=== PATIENT | female | born 1990 | race Caucasian/White ===

== ENCOUNTER 2023-10-19 16:07 | Emergency (ER) | payer OTHER, SELFPAY ==
[2023-10-19 16:15] VITALS: BP 113/82
[2023-10-19 19:17] VITALS: BP 102/67
--- NOTE | 2023-10-19 19:22 | ED.GENMED ---
History of Present Illness
General
Chief Complaint: DVT/Possible Blood Clot
Source: patient
Exam Limitations: none
Time Seen by Provider: 10/19/23 18:46
Travel History
Have you had any contact with someone who has COVID-19?: No
Do you have any symptoms of coronavirus? Fever > 100 degrees, chills, cough, shortness of breath, sore throat, loss of taste or smell, muscle aches, or headache?: No
History of Present Illness
History of Present Illness:
This is a 33 year old female that comes in with c/o left leg bruising. States that about a week ago she started with a bruise on the left lateral posterior knee area. States that her friend told her about blood clots since she is on control
and she felt it better get checked. States that when she walks or stretches the muscle she has some discomfort. States that she has had a little nausea and a headache yesterday. Denies any fever, chills, chest pain, SOB, abd pain, vomiting,
diarrhea, headache today, dizziness, urinary burning. Denies any injury
Past History
Past History
ED Past Medical History: Other (Interstitial cystitis, Back pain, Right lazy eye, Ovarian cyst); Negative Asthma, HTN, Hypercholesterolemia or NIDDM
ED Past Surgical History: , Gynecological (D&E [id number] ) and Other (Breast reduction)
Social History
Tobacco: Former smoker
Alcohol: None
Drug: Former user
Personal: (Common law marrage)
Living: with family
Employment: Not employed
Family History
Family History: Other
Review of Systems
Review of Systems
All Other Systems: ROS reviewed and negative except as documented in HPI and ROS
Constitutional: Reports no symptoms; Denies fever or chills
EENT: Reports no symptoms
Respiratory: Reports no symptoms; Denies cough or trouble breathing
Cardiac: Reports no symptoms; Denies chest pain
ABD/GI: Reports nausea; Denies abdominal pain, vomiting or diarrhea
: Reports no symptoms; Denies dysuria, frequency or urgency
Musculoskeletal: Reports other (bruise left posterior lateral knee area)
Skin: Reports no symptoms
Neurological: Reports no symptoms; Denies dizzy or headache
Psychiatric: Reports no symptoms
Phy Exam
General Physical Exam
General Presentation: well appearing and no apparent distress
General age: appears stated age
General Skin: warm and dry
General Habitus: normal
General Mental: alert
General Hydration: appears well hydrated
ENT Exam
ENT Exam: TM's normal, pharynx normal and neck supple
Eye Exam
Eye Exam: EOMI
Cardiovascular Exam
Cardiovascular Exam: regular rate/rhythm, no edema, no murmur and normal peripheral pulses
Pulmonary Exam
Pulmonary Exam: lungs clear, no respiratory distress, no rales, chest non tender, no crackles, no rhonchi, no wheezing and no cough
Musculoskeletal Exam
Musculoskeletal Exam: full ROM and no edema
Skin Exam
Skin Exam: normal color, warm/dry, no rash, no petechia and other (Small half dollar size contusion left lateral posterior knee area. Negative for any swelling or tenderness with palpation)
Psychiatric Exam
Psychiatric Exam: normal mood/affect
Course
Orders/Labs/Results
Orders:
Orders
10/19/23 16:17
US Legs, Left [US Periph Venous LOWER Ext LT] Urgent
Comment:
Reason For Exam: pain and swelling
Vital Signs
Initial and Last Documented VS:
Initial Vital Signs
Temp Pulse Resp BP Pulse Ox
98.8 F 64 18 113/82 99
10/19/23 16:15 10/19/23 16:15 10/19/23 16:15 10/19/23 16:15 10/19/23 16:15
Last Documented Vital Signs
Temp Pulse Resp BP Pulse Ox
98.8 F 58 19 102/67 98
10/19/23 16:15 10/19/23 19:17 10/19/23 19:17 10/19/23 19:17 10/19/23 19:17
MDM/Problems Addressed
Differential Diagnosis Includes:
COntusion, DVT
MDM/Problems Addressed:
This is a 33 year old female that comes in with c/o a contusion on the left posterior lateral knee. Patient was concerned for a DVT as she is on control
Will get US.
Explained to patient that the US is negative for DVT. This looks to be a contusion and this can be sore for some time. This will go away on its own. Follow up with the PCP as needed. Return with any concerns.
Chronic conditions affecting care:
NA
Acute Exacerbation and/or Progression of Chronic Illness:
NA
*Radiology
Radiology exam reviewed: radiology read reviewed (US- No evidence of deep venous thrombosis of the left lower extremity. )
*Pulse Oximetry
Patient hypoxic: no
*EKG
Interpreted by ED Provider?: NA
Rate: EKG- N/A
*Pediatric Allergist Interpretation
Rate: Pediatric Allergist- N/A
*Critical Care Note
Total Time (30-74mins, 75-104mins- exclusive of procedures): Not Applicable
ED Attending Note
-
Portions of this chart may have been created with voice recognition software.� Occasional wrong word or��sound alike� substitutions may have occurred due to the inherent limitations of voice recognition software.
Discharge Plan
Departure
Patient Disposition: Home (Routine Discharge)
Date of Disposition: 10/19/23
Time of Disposition: 19:29
Patient with high blood pressure during this ER visit?: No
Condition: Good
Covid-19: Not Applicable
Discharge Problem:
Contusion
Instructions: Contusion
Prescriptions:
No Action
pren vit comb.1-iron cb-FA-DSS 1 TAB tablet
1 tab PO DAILY
acetaminophen 325 mg Tablet
650 mg PO Q4HPRN PRN (Reason: mild pain) Qty: 0 0RF
ibuprofen 600 mg Tablet
600 mg PO Q4HPRN PRN (Reason: moderate pain/cramps) Qty: 0 0RF
ciprofloxacin-dexamethasone [Ciprodex] 0.3-0.1 % drops,suspension
4 drp otic (ear) BID 7 Days Qty: 7.5 0RF
Referrals:
NONE,* [Family Provider] -
Activity Restrictions/Additional Instructions:
As discussed, your Ultrasound is negative for DVT. This looks to be a bruise and this will go away on its own. You may use Tylenol as needed for any discomfort. Follow up with the Family doctor as needed. IF YOU HAVE ANY OTHER CONCERNS PLEASE
RETURN TO THE EMERGENCY ROOM.
Interventions
Interventions:
*Risk Screen - Suicide Last Done: 10/19/23 16:15
*General Assessment Last Done: 10/19/23 16:15
*Neglect/Abuse Screening Last Done: 10/19/23 16:15
*ED COVID-19 Vaccine History Last Done: 10/19/23 16:15
ED- Cardiac Assessment Last Done: 10/19/23 19:17
ED- Pulmonary Assessment Last Done: 10/19/23 19:17
ED-Peripheral Vascular Assessment Last Done: 10/19/23 19:18
ED-Skin Assessment Last Done: 10/19/23 19:17
Discharge Date and Time
Print Language: CHADIAN
== END 2023-10-19 19:38 | disposition home or self-care (01) ==
LOC: EMR 16:07
PROVIDERS: EMERGENCY PHYSICIAN Emergency Medicine
DX: S80.12XA Contusion of left lower leg, initial encounter (principal); X58.XXXA Exposure to other specified factors, initial encounter; H53.001 Unspecified amblyopia, right eye; Z87.891 Personal history of nicotine dependence
CPT/HCPCS: 99284; 93971

== ENCOUNTER 2023-10-31 19:48 | Emergency (ER) | payer OTHER, SELFPAY ==
[2023-10-31 20:04] VITALS: BP 134/79
--- NOTE | 2023-10-31 23:49 | ED.GENMED ---
History of Present Illness
General
Chief Complaint: Chest Pain
Time Seen by Provider: 10/31/23 23:34
Travel History
Have you had any contact with someone who has COVID-19?: No
Do you have any symptoms of coronavirus? Fever > 100 degrees, chills, cough, shortness of breath, sore throat, loss of taste or smell, muscle aches, or headache?: No
History of Present Illness
History of Present Illness:
HPI: Patient presents with right-sided chest/back discomfort. This is occasionally associated with nausea. There is no pain in the abdomen (however triage did order an ultrasound). She has no shortness of breath. The pain worsens with certain
position changes of the torso. 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 She states she had a recent mammogram which was unremarkable.
EXAM:
GENERAL: Well appearing in no distress
HEENT: Moist oral mucosa
CARDIOVASCULAR: No murmurs, normal heart rate, regular rhythm, mild to moderate chest wall tenderness lateral to the right breast
PULMONARY: No respiratory distress, breath sounds are clear and equal
ABDOMEN: Soft with no peritoneal signs, no tenderness
NEUROLOGIC: Excellent strength all extremities, no coordination deficits
PSYCHIATRIC: Appropriate mental status, normal insight and judgement
EXTREMITIES: Nontender, no edema, moves all extremities equally
SKIN: No rash, no lesions
TIME OF INITIAL ENCOUNTER: 11:40 PM
NUMBER AND COMPLEXITY OF PROBLEMS ADDRESSED AT THE ENCOUNTER
� Chronic conditions affecting care: Former smoker
� Acute Exacerbation and/or Progression of Chronic Illness: This is an acute problem
� Differential Diagnosis includes: Chest wall pain, costochondritis, musculoskeletal etiology, biliary colic, cholecystitis
AMOUNT AND/OR COMPLEXITY OF DATA TO BE REVIEWED AND ANALYZED
� I performed an independent evaluation of and my interpretation is:
EKG: Sinus 61, no acute ST abnormality
CT:
X-rays:
Laboratory Studies:
Other: Ultrasound imaging shows no sign of cholelithiasis or cholecystitis. Suggestion of fatty liver.
� Review of other/old records:
� Clinical information was obtained by an independent historian: None needed
� Prescriptions/Medications Considered but not given:
� Further testing considered but not performed: Considered chest x-ray however the patient has no shortness of breath and breath sounds are clear and equal
RISK OF COMPLICATIONS AND/OR MORBIDITY OR MORTALITY OF PATIENT MANAGEMENT
� Social determinants of health affecting care:
� Discussion with other providers:
� Escalation of care including admission/observation vs risk of discharge considered: The patient has been taking Tylenol without much relief. I recommend she tries NSAIDs instead. EKG is unremarkable. Consider/offered further
workup however the patient is eager to go home citing that she needs to work early in the morning and she has been here for an extended period of time.
Past History
Past History
ED Past Medical History: Other (Interstitial cystitis, Back pain, Right lazy eye, Ovarian cyst); Negative Asthma, HTN, Hypercholesterolemia or NIDDM
ED Past Surgical History: , Gynecological (D&E [id number] ) and Other (Breast reduction)
Social History
Tobacco: Former smoker
Alcohol: None
Drug: Former user
Personal: (Common law marrage)
Living: with family
Employment: Not employed
Family History
Family History: Other
Phy Exam
Physical Exam
Physical Exam:
See HPI
Scores
Heart Score for Chest Pain Patients
STEMI patient?: Not applicable
Course
Orders/Labs/Results
Orders:
Orders
10/31/23 19:51
Electrocardiogram (*1) Urgent
Reason for Study: Chest Pain
EKG- Treatment ONCE
Complete Blood Count/With Diff Urgent
Comprehensive Metabolic Panel Urgent
Lipase Urgent
Troponin I Urgent
10/31/23 20:08
US Abdomen Complete/Upper Urgent
Comment:
Reason For Exam: pain
Vital Signs
Initial and Last Documented VS:
Initial Vital Signs
Temp Pulse Resp BP Pulse Ox
97.9 F 64 17 134/79 99
10/31/23 20:04 10/31/23 20:04 10/31/23 20:04 10/31/23 20:04 10/31/23 20:04
Last Documented Vital Signs
Temp Pulse Resp BP Pulse Ox
97.9 F 64 17 134/79 99
10/31/23 20:04 10/31/23 20:04 10/31/23 20:04 10/31/23 20:04 10/31/23 20:04
*Critical Care Note
Total Time (30-74mins, 75-104mins- exclusive of procedures): Not Applicable
ED Attending Note
-
Portions of this chart may have been created with voice recognition software.� Occasional wrong word or��sound alike� substitutions may have occurred due to the inherent limitations of voice recognition software.
Discharge Plan
Departure
Patient Disposition: Home (Routine Discharge)
Date of Disposition: 10/31/23
Time of Disposition: 23:56
Patient with high blood pressure during this ER visit?: Yes
Discharge Problem:
Acute chest wall pain
Prescriptions:
No Action
pren vit comb.1-iron cb-FA-DSS 1 TAB tablet
1 tab PO DAILY
acetaminophen 325 mg Tablet
650 mg PO Q4HPRN PRN (Reason: mild pain) Qty: 0 0RF
ibuprofen 600 mg Tablet
600 mg PO Q4HPRN PRN (Reason: moderate pain/cramps) Qty: 0 0RF
ciprofloxacin-dexamethasone [Ciprodex] 0.3-0.1 % drops,suspension
4 drp otic (ear) BID 7 Days Qty: 7.5 0RF
Referrals:
Tari Arthur CRNP [Family Provider] -
Activity Restrictions/Additional Instructions:
Please follow-up your primary care doctor. I recommend 3-4 vypb-zik-shmefzh ibuprofen (Motrin) every 8 hours with food for a few days. Return here if worse.
Interventions
Interventions:
*Risk Screen - Suicide Last Done: 10/31/23 20:04
*General Assessment Last Done: 10/31/23 20:04
*Neglect/Abuse Screening Last Done: 10/31/23 20:04
Discharge Date and Time
Print Language: HUNGARIAN
== END 2023-10-31 23:50 | disposition home or self-care (01) ==
LOC: EMR 19:48
PROVIDERS: EMERGENCY PHYSICIAN Emergency Medicine; FAMILY PHYSICIAN Nurse Practitioner
DX: R07.89 Other chest pain (principal); Z87.891 Personal history of nicotine dependence
CPT/HCPCS: 99284; 76700; 93005

== ENCOUNTER 2024-05-26 15:37 | Emergency (ER) | payer OTHER, SELFPAY ==
[2024-05-26 15:39] VITALS: BP 126/85
[2024-05-26 15:56] LABS: HCG, Urine Qualitative Screen Negative
--- NOTE | 2024-05-26 16:21 | ED.GENMED ---
History of Present Illness
General
Chief Complaint: Dental Problem
Source: patient
Exam Limitations: none
Time Seen by Provider: 05/26/24 15:57
History of Present Illness
History of Present Illness:
33-year-old otherwise healthy female presents complaining of onset of swelling to the left lower jaw this morning this was preceded by 2 days worth of pain. She also states her last menstrual cycle was April 09 and took a positive test
3 weeks ago. She started spotting yesterday. She denies any pain. She denies any passing of large clots. No abdominal pain or lightheadedness. No other complaints
Past History
Past History
ED Past Medical History: Other (Interstitial cystitis, Back pain, Right lazy eye, Ovarian cyst); Negative Asthma, HTN, Hypercholesterolemia or NIDDM
ED Past Surgical History: , Gynecological (D&E [id number] ) and Other (Breast reduction)
Social History
Tobacco: Former smoker
Alcohol: None
Drug: Former user
Personal: (Common law marrage)
Living: with family
Employment: Not employed
Family History
Family History: Other
Phy Exam
Physical Exam
Physical Exam:
General: Well-appearing female no acute respiratory distress
HEENT: Normocephalic atraumatic mild amount of soft tissue swelling noted over the angle of the mandible left side. Evidence of cavity noted on left mandibular second molar. Gingival tissue is not erythematous. The floor the mouth is soft. The
posterior pharynx is symmetric and patent. No trismus or drooling neck is supple
Heart: Regular rate and rhythm
Lungs: Clear no
Course
Orders/Labs/Results
Orders:
Orders
05/26/24 15:44
Test Result ONCE
05/26/24 15:47
HCG, Urine Qualitative Screen Urgent
Date Specimen was Collected: 05/26/24
Time Specimen was Collected: 15:44
05/26/24 16:20
Clindamycin HCl [Cleocin] 300 mg PO NOW STA
Ibuprofen [Motrin] 600 mg PO NOW STA
Vital Signs
Initial and Last Documented VS:
Initial Vital Signs
Temp Pulse Resp BP Pulse Ox
98.4 F 61 18 126/85 98
05/26/24 15:39 05/26/24 15:39 05/26/24 15:39 05/26/24 15:39 05/26/24 15:39
Last Documented Vital Signs
Temp Pulse Resp BP Pulse Ox
98.4 F 61 18 126/85 98
05/26/24 15:39 05/26/24 15:39 05/26/24 15:39 05/26/24 15:39 05/26/24 15:39
MDM/Problems Addressed
Differential Diagnosis Includes:
Exam consistent with small dental abscess. Nothing to drain at this time. No evidence of deep space infection. No respiratory distress. Will recommend antibiotics and Motrin. She is allergic to the MEGAN and family. Will do clindamycin. Today's
test was negative. She has no abdominal pain she is not passing clots and hemodynamically stable. No indication for any further intervention on that side of things. Stable for discharge
*Critical Care Note
Total Time (30-74mins, 75-104mins- exclusive of procedures): Not Applicable
ED Attending Note
-
Portions of this chart may have been created with voice recognition software.� Occasional wrong word or��sound alike� substitutions may have occurred due to the inherent limitations of voice recognition software.
Discharge Plan
Departure
Patient Disposition: Home (Routine Discharge)
Date of Disposition: 05/26/24
Time of Disposition: 16:29
Patient with high blood pressure during this ER visit?: No
Discharge Problem:
Dental abscess
Instructions: Tooth Abscess (DC)
Prescriptions:
New
clindamycin HCl 300 mg capsule
300 mg PO TID Qty: 20 0RF
No Action
pren vit comb.1-iron cb-FA-DSS 1 TAB tablet
1 tab PO DAILY
acetaminophen 325 mg Tablet
650 mg PO Q4HPRN PRN (Reason: mild pain) Qty: 0 0RF
ibuprofen 600 mg Tablet
600 mg PO Q4HPRN PRN (Reason: moderate pain/cramps) Qty: 0 0RF
ciprofloxacin-dexamethasone [Ciprodex] 0.3-0.1 % drops,suspension
4 drp otic (ear) BID 7 Days Qty: 7.5 0RF
Referrals:
NONE,* [Family Provider] -
Activity Restrictions/Additional Instructions:
Take antibiotics as directed. Continue with warm salt water rinses. Use Motrin if needed for pain. Return if worse otherwise follow-up with your dentist
Interventions
Interventions:
*Risk Screen - Suicide Last Done: 05/26/24 15:39
*General Assessment Last Done: 05/26/24 15:39
*Neglect/Abuse Screening Last Done: 05/26/24 15:39
Discharge Date and Time
Print Language: BELARUSIAN
[2024-05-26] MEDS: MOTRIN 600 MG PO (16:33)
[2024-05-26] MEDS: CLEOCIN 300 MG PO (16:34)
[2024-05-26 16:40] VITALS: BP 139/75
== END 2024-05-26 16:40 | disposition home or self-care (01) ==
LOC: EMR 15:37
PROVIDERS: Student in an Organized Health Care Education/Training Program; EMERGENCY PHYSICIAN Student in an Organized Health Care Education/Training Program
DX: K04.7 Periapical abscess without sinus (principal); R22.0 Localized swelling, mass and lump, head; Z88.0 Allergy status to penicillin
CPT/HCPCS: 99283; 81025

== ENCOUNTER 2024-08-09 10:23 | Emergency (ER) | payer OTHER, SELFPAY ==
[2024-08-09 10:37] VITALS: BP 110/59
[2024-08-09 11:01] LABS: % Basophils 0.6 % (0-2); % Eosinophils 1.6 % (0-6); % Immature Granulocytes 0.5 % (0-0.5); % Neutrophils 64.3 % (42.2-75.2); Absolute Eosinophils 0.1 10^3/uL (0-0.7); Absolute Lymphocytes 1.6 10^3/uL (1.2-3.4); Absolute Monocytes 0.5 10^3/uL (0.1-0.6); Hematocrit 37.6 % (37.0-47.0); Hemoglobin 12.4 g/dL (12.0-16.0); Mean Corpuscular Hgb 29.5 pg (27.0-31.0); Mean Corpuscular Volume 89.3 fL (81.0-99.0); Nucleated Red Blood Cells % 0 %; Platelet Count 281 10^3/uL (130-400); Red Blood Cell Count 4.21 10^6/uL (4.20-5.40); Red Cell Dist. Width 12.4 % (11.5-14.5); White Blood Cell Count 6.3 10^3/uL (4.8-10.8)
[2024-08-09 11:05] LABS: Urine Albumin Negative (Neg - Trace); Urine Bilirubin Negative (Negative); Urine Character Slightly Cloudy (Clear); Urine Color Yellow; Urine Glucose Negative (Negative); Urine Ketone Negative (Negative); Urine Leukocyte Negative (Negative); Urine Nitrite Negative (Negative); Urine Occult Blood Negative (Negative); Urine Specific Gravity 1.015 (<1.030); Urine Urobilinogen Negative (Neg - 1+)
[2024-08-09 11:11] LABS: HCG, Serum Qualitative Screen Positive
[2024-08-09 11:17] LABS: ALT (SGPT) 21 U/L (0-35); AST (SGOT) 20 U/L (14-36); Albumin 3.8 g/dl (3.5-5.0); Alkaline Phosphatase 82 U/L (38-126); Blood Urea Nitrogen 11 mg/dl (7-17); Calcium 8.9 mg/dl (8.4-10.2); Carbon Dioxide 21 mmol/L (22-30); Chloride 107 mmol/L (98-107); Glucose 88 mg/dl (70-99); Potassium 3.8 mmol/L (3.5-5.1); Sodium 136 mmol/L (135-145); Total Bilirubin 0.5 mg/dl (0.2-1.3); Total Protein 6.3 g/dl (6.3-8.2); eGFR > 60.00
--- NOTE | 2024-08-09 13:05 | ED.GENMED ---
History of Present Illness
General
Chief Complaint: Abdominal Pain
Source: patient
Time Seen by Provider: 08/09/24 12:54
History of Present Illness
History of Present Illness:
34-year-old female presenting to the emergency department for right-sided lower groin pain that started last night improved today although still present what prompted her to come to the ER today, symptoms are associated with mild nausea. Patient
stated to me that she believes she is likely. Last menstrual period was on June 23. No vaginal bleeding or discharge. No other concerns presently.
Past History
Past History
ED Past Medical History: Other (Interstitial cystitis, Back pain, Right lazy eye, Ovarian cyst); Negative Asthma, HTN, Hypercholesterolemia or NIDDM
ED Past Surgical History: , Gynecological (D&E [id number] ) and Other (Breast reduction)
Social History
Tobacco: Former smoker
Alcohol: None
Drug: Former user
Personal: (Common law marrage)
Living: with family
Employment: Not employed
Family History
Family History: Other
Review of Systems
Review of Systems
All Other Systems: ROS reviewed and negative except as documented in HPI and ROS
Phy Exam
Physical Exam
Physical Exam:
GENERAL: Alert , in no apparent distress
EYE: clear conjunctiva b/l
HEAD: NCAT
ENT: mmm.
CARDIAC: Regular rate and rhythm .
LUNGS: Clear breath sounds bilaterally, no acute respiratory distress, no wheezes/rales/rhonchi
ABDOMEN: Soft, without focal tenderness, no r/g, no cvat
NEUROLOGICAL: Alert and oriented
SKIN: Warm and dry, skin intact.
MUSCULOSKELETAL: well perfused.
PSYCH: Normal and appropriate interaction.
Scores
Heart Failure Risk
Heart Failure Risk Score: Not Applicable
Heart Score for Chest Pain Patients
STEMI patient?: Not applicable
Withdrawal Assessment of Alcohol
Withdrawal Assessment Completed?: Not applicable
Course
Orders/Labs/Results
Orders:
Orders
08/09/24 10:42
Test Result ONCE
08/09/24 10:47
Complete Blood Count/With Diff Urgent
Comprehensive Metabolic Panel Urgent
HCG, Beta Quantitative [Beta HCG Quantitative] Urgent
Is this a screen?: No
HCG, Serum Qualitative Screen Urgent
Urinalysis Reflex To Culture Urgent
Date Specimen was Collected: 08/09/24
Time Specimen was Collected: 10:42
08/09/24 12:55
Add On- LAB Urgent
Tests Added?: hcg quantitative
Abnormal Lab Results
08/09/24
10:47
Carbon Dioxide 21 L mmol/L
(22-30)
Creatinine 0.5 L mg/dL
(0.6-1.0)
08/09/24 10:47
08/09/24 10:47
Vital Signs
Initial and Last Documented VS:
Initial Vital Signs
Temp Pulse Resp BP Pulse Ox
98.2 F 67 16 110/59 99
08/09/24 10:37 08/09/24 10:37 08/09/24 10:37 08/09/24 10:37 08/09/24 10:37
Last Documented Vital Signs
Temp Pulse Resp BP Pulse Ox
98.2 F 67 16 110/59 99
08/09/24 10:37 08/09/24 10:37 08/09/24 10:37 08/09/24 10:37 08/09/24 10:37
MDM/Problems Addressed
Differential Diagnosis Includes:
Ectopic , kidney stone, ovarian cyst, ovarian torsion, urinary tract infection
MDM/Problems Addressed:
34-year-old female presenting to the ER for evaluation of right lower groin pain that started last night, somewhat improved today and accompanied with nausea. Labs ordered on arrival with patient's test coming back positive. I did add on
an hCG quantitive and initially was hoping to obtain an ultrasound however patient stating she does not wish for any further testing and would like to be discharged home. I did discuss risks of leaving without having an ultrasound and knowing if
there is any potential for ectopic and patient expressed understanding. We did discuss return precautions or symptoms that could be suggestive of ectopic and patient was in agreement with this. She currently does not have an
SCRAP BALLER and states due to her insurance she is somewhat limited. Did provide her with information for [facility] SCR[facility]ER or [facility].
*Pulse Oximetry
Patient hypoxic: no
*Critical Care Note
Total Time (30-74mins, 75-104mins- exclusive of procedures): Not Applicable
Data Reviewed
Further Testing Considered But Not Given:
US to r/o ectopic however patient declines
ED Attending Note
-
Portions of this chart may have been created with voice recognition software.� Occasional wrong word or��sound alike� substitutions may have occurred due to the inherent limitations of voice recognition software.
Discharge Plan
Departure
Patient Disposition: Home (Routine Discharge)
Date of Disposition: 08/09/24
Time of Disposition: 13:05
Patient with high blood pressure during this ER visit?: No
Discharge Problem:
Abdominal pain, Positive test
Instructions: symptoms
Prescriptions:
No Action
pren vit comb.1-iron cb-FA-DSS 1 TAB tablet
1 tab PO DAILY
acetaminophen 325 mg Tablet
650 mg PO Q4HPRN PRN (Reason: mild pain) Qty: 0 0RF
ibuprofen 600 mg Tablet
600 mg PO Q4HPRN PRN (Reason: moderate pain/cramps) Qty: 0 0RF
ciprofloxacin-dexamethasone [Ciprodex] 0.3-0.1 % drops,suspension
4 drp otic (ear) BID 7 Days Qty: 7.5 0RF
clindamycin HCl 300 mg capsule
300 mg PO TID Qty: 20 0RF
Referrals:
UNKNOWN - PT DOES,NOT KNOW [Family Provider] -
Interventions
Interventions:
*Risk Screen - Suicide Last Done: 08/09/24 10:37
*General Assessment Last Done: 08/09/24 10:37
*Neglect/Abuse Screening Last Done: 08/09/24 10:37
*ED COVID-19 Vaccine History Last Done: 08/09/24 10:37
*Nursing Disposition Last Done: 08/09/24 13:17
EX-Chatyq-Fyviyengvj Assessment Last Done: 08/09/24 12:14
Discharge Date and Time
Discharge Date/Time: 08/09/24 13:17
Print Language: LAO
== END 2024-08-09 13:17 | disposition home or self-care (01) ==
LOC: EMR 10:23
PROVIDERS: Emergency Medicine; Physician Assistant Medical; EMERGENCY PHYSICIAN Emergency Medicine
DX: R10.9 Unspecified abdominal pain (principal); Z33.1 Pregnant state, incidental; Z87.891 Personal history of nicotine dependence
CPT/HCPCS: 99283; 80053; 81003; 84702; 84703; 85025

== ENCOUNTER 2025-03-10 10:26 | Inpatient (IN) | payer OTHER, SELFPAY ==
[2025-03-10] MEDS: LR 1000 IV (11:00)
[2025-03-10 11:14] VITALS: BP 122/75; BMI 31.2
[2025-03-10 11:23] LABS: Hematocrit 32.6 % (37.0-47.0); Hemoglobin 11.0 g/dL (12.0-16.0); Mean Corp Hgb Conc. 33.7 g/dL (33.0-37.0); Mean Corpuscular Volume 86.9 fL (81.0-99.0); Platelet Count 279 10^3/uL (130-400); Red Cell Dist. Width 12.2 % (11.5-14.5)
[2025-03-10] MEDS: BICITRA 30 ML PO (11:42)
[2025-03-10] MEDS: TYLENOL 975 MG PO (11:42)
[2025-03-10] MEDS: CLEOCIN 50 IV (12:52)
[2025-03-10] MEDS: PITOCIN 30 UNITS/NSS 500 ML IV (14:00)
[2025-03-10] MEDS: TORADOL 15 MG IV ×2 (15:45→21:37)
[2025-03-10] MEDS: BENADRYL 25 MG IV (19:54)
[2025-03-10] MEDS: COLACE 100 MG PO (19:54)
[2025-03-11] MEDS: TORADOL 15 MG IV ×2 (03:59→10:23)
[2025-03-11 04:47] LABS: Hematocrit 29.3 % (37.0-47.0); Hemoglobin 9.8 g/dL (12.0-16.0); Mean Corp Hgb Conc. 33.4 g/dL (33.0-37.0); Mean Corpuscular Volume 88.3 fL (81.0-99.0); Platelet Count 248 10^3/uL (130-400); Red Cell Dist. Width 12.3 % (11.5-14.5)
[2025-03-11] MEDS: COLACE 100 MG PO ×2 (07:38→20:18)
[2025-03-11] MEDS: MYLICON 80 MG PO (07:38)
--- NOTE | 2025-03-11 07:41 | W.PN.ANS.POP ---
Anesthesia Post Operative
- Anesthesia Post Op Note
Vital Signs Stable-See Nursing Note: Yes
Airway Patent: Yes
Adequate Pain Control: Yes
Change in Mental Status: No
Current Postoperative Nausea & Vomiting: No
Anesthesia Complications: No
General Anesthetic Recall: No
Unplanned Admission: No
Post Op Hydration Adequate: Yes
[2025-03-11] MEDS: TYLENOL 650 MG PO ×3 (11:54→21:57)
[2025-03-11 15:38] LABS: Syphilis/T. pallidum Ab Reflex Negative (Negative)
[2025-03-11] MEDS: MOTRIN 600 MG PO ×2 (16:25→21:56)
[2025-03-11] MEDS: ROXICODONE 5 MG PO (22:01)
[2025-03-12] MEDS: ROXICODONE 5 MG PO ×2 (04:21→08:16)
[2025-03-12] MEDS: MOTRIN 600 MG PO (04:21)
[2025-03-12] MEDS: TYLENOL 650 MG PO ×2 (04:22→08:16)
[2025-03-12] MEDS: COLACE 100 MG PO (08:16)
== END 2025-03-12 12:11 | disposition home or self-care (01) | DRG 785 ==
LOC: LDRP 10:26
PROVIDERS: ADMITTING PHYSICIAN Obstetrics & Gynecology
PROC: 0UT70ZZ Resection of Bilateral Fallopian Tubes, Open Approach (ICD-10-PCS; 2025-03-10)
PROC: 10D00Z1 Extraction of Products of Conception, Low, Open Approach (ICD-10-PCS; 2025-03-10)
DX: O99.824 Streptococcus B carrier state complicating childbirth (principal); Z3A.37 37 weeks gestation of pregnancy; Z37.0 Single live birth; O34.211 Maternal care for low transverse scar from previous cesarean delivery; Z88.0 Allergy status to penicillin
CPT/HCPCS: 58605; 85027; 86780; 86850; 86900; 86901; 88302